=== PATIENT | female | born 1940 | race Caucasian/White ===

== ENCOUNTER 2017-02-20 10:51 | Day surgery (SDC) | payer MEDICARE ==
[2017-02-15 13:31] VITALS: BMI 20.3
[~2017-02-20 10:51] MED LIST: DEXAMETHASONE SOD PHOSPHATE 10 MG/ML 1 ML VIAL IV ONE; HEPARIN SODIUM,PORCINE 5,000 UNIT/ML 1 ML VIAL SQ ONE; HYDROmorphone 1 MG/ML 1 ML SYRINGE IVP PRN; LACTATED RINGERS 1,000 ML IV SCH; MIDAZOLAM 2 MG/2 ML VIAL IV PRN; ONDANSETRON 4 MG/2 ML VIAL IVP ONE; ceFAZolin 2 GM in SODIUM CHLORIDE 0.9% 100 ML IVPB ONE
[2017-02-20 11:22] VITALS: RESP 16; TEMP 98.3
[2017-02-20] MEDS ORDERED: LIDOCAINE 1% 20 ML VIAL (10MG/ML) FOR IV START INTRADERMA ONE (11:23)
[2017-02-20] MEDS ORDERED: LIDOCAINE 1%-EPI 1:100,000 20 ML VIAL SQ ONE ×2 (12:44→13:38)
--- NOTE | 2017-02-20 12:56 | P.GSHP ---
History of Present Illness H&P Date: 02/20/17 Chief Complaint: Liver cancer Cyst 68-year-old female who was recently diagnosed with liver cancer. Patient rents today for Port-A-Cath insertion. - Constitutional Constitutional: Reports as per HPI Past Medical History Past Medical History: Cancer Additional Past Medical History / Comment(s): PANCREATIC/LIVER History of Any Multi-Drug Resistant Organisms: None Reported Past Surgical History: Appendectomy, Cholecystectomy Additional Past Surgical History / Comment(s): BX OF LIVER Past Anesthesia/Blood Transfusion Reactions: No Reported Reaction Smoking Status: Never smoker - Past Family History Brother(s) Family Medical History: Cancer Additional Family Medical History / Comment(s): PANCREATIC Medications and Allergies Home Medications Medication Instructions Recorded Confirmed Type Acetaminophen Tab [Tylenol Tab] 325 mg PO Q4H PRN 02/15/17 02/20/17 History Ibuprofen [Advil] 200 mg PO Q6HR PRN 02/15/17 02/15/17 History HYDROcodone/APAP 5-325MG [[place] 1 tab PO Q6HR PRN 02/20/17 02/20/17 History 5-325] Allergies Allergy/AdvReac Type Severity Reaction Status Date / Time No Known Allergies Allergy Verified 02/15/17 13:23 Surgical - Exam Vital Signs Temp Pulse Resp BP Pulse Ox 98.3 F 76 16 151/70 100 02/20/17 11:21 02/20/17 11:21 02/20/17 11:21 02/20/17 11:21 02/20/17 11:21 - General well developed, no distress - Eyes PERRL - ENT normal pinna - Neck no masses - Respiratory normal expansion - Cardiovascular Rhythm: regular - Abdomen Abdomen: soft, non tender Assessment and Plan Plan: Liver cancer. We'll perform Port-A-Cath insertion
[2017-02-20] MEDS ORDERED: fentaNYL (PF) 50 MCG/ML 2 ML AMP ONE (13:18)
[2017-02-20] MEDS ORDERED: PROPOFOL 10 MG/ML 20 ML VIAL IV ONE (13:18)
[2017-02-20] MEDS ORDERED: MIDAZOLAM 2 MG/2 ML VIAL ONE (13:18)
--- NOTE | 2017-02-20 13:46 | P.OP ---
Date of Procedure: 02/20/17 Preoperative Diagnosis: Liver cancer Postoperative Diagnosis: Liver cancer Procedure(s) Performed: Right subclavian Port-A-Cath insertion Implants: Anesthesia: MAC Surgeon: Elvis Dobbins Estimated Blood Loss (ml): 5 Pathology: none sent Condition: stable Disposition: PACU Indications for Procedure: Operative Findings: Description of Procedure: PROCEDURE: The patient was placed on the operating table in the supine position. She received MAC anesthetic. The right chest was prepped and draped in the usual sterile fashion. The skin underneath the right clavicle was anesthetized with 1% Xylocaine and using Seldinger technique, the right subclavian vein was cannulized. The wire was placed through the needle and positioned under fluoroscopy. Next, the needle was removed and the port site was anesthetized with 1% Xylocaine. Skin was incised with #15 blade and port pocket was made using blunt and sharp dissection. Following this the catheter was attached to the sport and the port was flushed. The port was positioned into the pocket site and was secured with 3-0 Vicryl suture. The catheter was then brought out through the wire site and then the dilator sheath was placed over the wire and the dilator and the wire were removed. The catheter was placed through the sheath and the sheath was removed. The port was flushed with hep-lock solution. Skin was closed with interrupted 3-0 Vicryl sutures. Steri-Strips were applied. The patient tolerated the procedure well. The patient was sent to recovery room for chest x -ray after the procedure.
--- NOTE | 2017-02-20 14:07 | FL ---
Fluoroscopy INDICATION: Pain FINDINGS: Fluoroscopy time: 7 seconds. Images obtained: 1. IMPRESSIONS: 1. Documentation of fluoroscopy.
--- NOTE | 2017-02-20 14:18 | XR ---
EXAMINATION TYPE: XR chest 1V portable DATE OF EXAM: 02/20/2017 COMPARISON: NONE INDICATION: Line placement TECHNIQUE: Single frontal view of the chest is obtained. FINDINGS: The heart size is normal. The pulmonary vasculature is normal. Perihilar increased lung markings are present. Some milder peripheral lung markings on the left. Keren elate for atelectasis. Catheter is present on the right with the tip in the proximal superior vena cava. IMPRESSION: 1. No pneumothorax post right-sided catheter placement. 2. Perihilar increased lung markings greater on the left
[2017-02-20 14:32] VITALS: BP 121/54; PULSE 80
== END 2017-02-20 15:33 | disposition home or self-care (01) ==
LOC: OR 10:51
PROVIDERS: ATTEND Surgery
DX: C78.7 Secondary malignant neoplasm of liver and intrahepatic bile duct (principal); C25.9 Malignant neoplasm of pancreas, unspecified
CPT/HCPCS: 71010; 77001; 36561; C1788; J2250; J1644; J1100; J0690; J2405; J3010; J2704

== ENCOUNTER → 2017-05-21 | Outpatient (CLI) | payer MEDICARE ==
--- NOTE | 2017-05-21 17:43 | US ---
EXAMINATION TYPE: US venous doppler duplex LE RT DATE OF EXAM: 05/21/2017 5:25 PM COMPARISON: NONE CLINICAL HISTORY: M79.661 Pain in right lower leg. SIDE PERFORMED: Right TECHNIQUE: The lower extremity deep venous system is examined utilizing real time linear array sonog michael with graded compression, doppler sonography and color-flow sonography. VESSELS IMAGED: External Iliac Vein (EIV) Common Femoral Vein Deep Femoral Vein Greater Saphenous Vein * Femoral Vein Popliteal Vein Small Saphenous Vein * Proximal Calf Veins (* superficial vessels) Right Leg: Negative for DVT Grayscale, color doppler, spectral doppler imaging performed of the deep veins of the right lower ext remity. There is normal flow, compressibility, vascular waveforms. IMPRESSION: No ultrasound evidence for acute DVT in the right lower extremity.
== END | disposition home or self-care (01) ==
LOC: RADUSMAIN 16:58
PROVIDERS: ATTEND Internal Medicine Hematology & Oncology
DX: M79.661 Pain in right lower leg (principal)

== ENCOUNTER 2017-08-06 11:47 | Observation (INO) | payer MEDICARE ==
[2017-08-06] MEDS ORDERED: HYDROmorphone 1 MG/ML 1 ML SYRINGE IVP PRN (14:35)
[2017-08-06] MEDS ORDERED: LACTULOSE 200 GM/300 ML (FROM 1/2 GAL JUG) PO PRN (14:58)
[2017-08-06] MEDS ORDERED: DOCUSATE 100 MG CAP PO PRN (14:58)
[2017-08-06] MEDS ORDERED: LORazepam 1 MG TAB PO PRN (14:58)
[2017-08-06] MEDS ORDERED: ONDANSETRON 4 MG/2 ML VIAL IVP PRN (14:59)
[2017-08-06 15:17] VITALS: RESP 16
--- NOTE | 2017-08-06 15:56 | P.HPIM ---
History of Present Illness H&P Date: 08/06/17 Chief Complaint: Abdominal pain Ms. a 76-year-old female with a known history of pancreatic cancer with liver metastases diagnosed in October 2016 who underwent IV chemotherapy 2 weeks ago and on oral chemotherapy presented to [facility] the complaints of abdominal pain worsening for the past 3 days. Pain is mainly in the epigastric and left upper quadrant area. No worsening or relieving factors Patient was diagnosed with constipation and was given in [place] and oral medications 3 days ago.. He has been having issues with constipation and thought she was having bowel obstruction which made her to go to the ER. Patient was eventually transferred to [facility] for further management. He had CT chest without contrast which showed infrahilar atelectasis without focal consolidation. Stable bilateral pulmonary nodules. Stable right port a cath. CT of the abdomen and pelvis showed fluid/gas present throughout not distended small bowel loops and fecal-like material feeling/mildly distending distal small bowel loops to the level of the ileocecal valve extends . No clear evidence of obstruction. acute abdominal series showed normal bowel gas pattern. AST 60, ALT 98, and alk phos 345 Total bilirubin 7.8 and direct bilirubin 5.4 Lactic acid is not elevated Remaining laboratory data reviewed from [facility] Review of Systems Constitutional: Patient denies any fever or chills . Positive generalized weakness, loss of appetite and weight loss. Abdomen: Patient denied nausea vomiting no diarrhea. Positive abdominal pain and constipation Cardiovascular: Patient denies any chest pain or short of breath no palpitations. Respiratory: patient denied any cough is from production. No shortness of breath Neurologic: Patient denied any numbness or tingling headache. Musculoskeletal: Patient denies any complaints of joint swelling or deformity. Skin: Negative Psychiatric: Negative Endocrine: No heat or cold intolerance. No recent weight gain. Genitourinary: No dysuria or hematuria. All other 14 point ROS negative except the above Past Medical History Past Medical History: Cancer Additional Past Medical History / Comment(s): PANCREATIC CANCER WITH LIVER METS , OSTEOPOROSIS. History of Any Multi-Drug Resistant Organisms: None Reported Past Surgical History: Appendectomy, Cholecystectomy Additional Past Surgical History / Comment(s): BX OF LIVER, PORT A CATH, COLONOSCOPY Past Anesthesia/Blood Transfusion Reactions: No Reported Reaction Smoking Status: Former smoker - Past Family History Brother(s) Family Medical History: Cancer Additional Family Medical History / Comment(s): PANCREATIC Father Family Medical History: No Reported History Additional Family Medical History / Comment(s): FATHER LIVED TO BE 97YRS OLD. Mother Family Medical History: No Reported History Additional Family Medical History / Comment(s): MOTHER LIVED TO BE 97YRS OLD. Medications and Allergies Home Medications Medication Instructions Recorded Confirmed Type Docusate [Colace] 100 mg PO BID PRN 08/06/17 08/06/17 History LORazepam [Ativan] 1 mg PO Q6H PRN 08/06/17 08/06/17 History Lactulose 20 gm PO BID PRN 08/06/17 08/06/17 History Na Phos,M-B/Na Phos,Di-Ba [Fleet 133 ml RECTAL ONCE PRN 08/06/17 08/06/17 History Adult] Naloxegol Oxalate [Movantik] 12.5 - 25 mg PO DAILY PRN 08/06/17 08/06/17 History Ondansetron [Zofran ODT] 8 mg PO Q8HR PRN 08/06/17 08/06/17 History Sancuso Patch 1 patch TRANSDERM Q14D 08/06/17 08/06/17 History fentaNYL 25MCG/HR PATCH [Duragesic 1 patch TRANSDERM Q72H 08/06/17 08/06/17 History 25MCG/HR] traMADol HCL [Ultram] 50 mg PO Q6HR PRN 08/06/17 08/06/17 History Allergies Allergy/AdvReac Type Severity Reaction Status Date / Time No Known Allergies Allergy Verified 08/06/17 14:33 Physical Exam Vitals: Intake and Output 08/05/17 08/06/17 08/06/17 22:59 06:59 14:59 Other: Weight 45.5 kg Patient Weight 08/07/17 06:59 Weight 45.5 kg PHYSICAL EXAMINATION: Patient is lying in the bed comfortably, no acute distress, awake alert and oriented.. HEENT: Normocephalic. Neck is supple. Pupils reactive. Nostrils clear. Oral cavity is moist. Ears reveal no drainage. Neck reveals no JVD, carotid bruits, or thyromegaly. CHEST EXAMINATION: Trachea is central. Symmetrical expansion. Lung ca clear to auscultation and percussion. CARDIAC: Normal S1, S2 with no gallops. No murmurs ABDOMEN: Soft. mild epigastric tenderness with sluggish bowel sounds. No organomegaly. No abdominal bruits. Extremities: reveal no edema. No clubbing or cyanosis Neurologically awake, alert, oriented x3 with well-coordinated movements. No focal deficits noted Skin: No rash or skin lesions. Psychiatric: Coperative. Nonsuicidal Musculoskeletal: No joint swelling or deformity. Normal range of motion. Thrombosis Risk Factor Assmnt - DVT/VTE Prophylaxis DVT/VTE Prophylaxis: Pharmacologic Prophylaxis ordered - Choose All That Apply Any of the Below Risk Factors Present?: Yes Other Risk Factors: Yes Each Risk Factor Represents 2 Points: Malignancy Each Risk Factor Represents 3 Points: Age 75 years or older Other congenital or acquired thrombophilia - If yes, enter type in comment: No Thrombosis Risk Factor Assessment Total Risk Factor Score: 5 Thrombosis Risk Factor Assessment Level: High Risk Assessment and Plan Assessment: #1 abdominal pain secondary to constipation. No obstruction noted on CT #2 pancreatic cancer status post chemotherapy 2 weeks ago metastatic to liver. #3 elevated liver in and alk phos #4 hyperbilirubinemia #5 constipation DVT prophylaxis next line plan: She will be continued on pain management and stool softeners and laxatives. Continue with IV hydration and clear liquid diet . Oncology will be consulted. Further recommendations based on the clinical course. Continue with home medications and follow closely.
[2017-08-06] MEDS: HEPARIN SODIUM,PORCINE 5,000 UNIT/ML 1 ML VIAL SQ SCH ×2 (16:26→23:24)
[2017-08-06] MEDS: SODIUM CHLORIDE 0.9% 1,000 ML IV SCH (16:27)
[2017-08-06] MEDS: HYDROmorphone 1 MG/ML 1 ML SYRINGE IVP PRN ×2 (17:39→23:17)
--- NOTE | 2017-08-06 20:59 | P.CONS ---
History of Present Illness - Reason for Consult Consult date: 08/06/17 Metastatic pancreatic cancer. Abdominal pain - History of Present Illness The patient is 76-year-old lady, well known to our service. She is followed by , in the outpatient setting. She was diagnosed with pancreatic cancer metastatic to the liver, around 02/02. She has since been on chemotherapy. (The exact details of her regimens are not available to me at this time). She states that her regimen was recently changed, but she was unable to tolerated because of nausea and progressive weakness. Therefore treatment was stopped, and she has been off it now for about 2-3 weeks. A repeat MRI for reevaluation was being planned. The patient went into the emergency room at [facility], because of increasing abdominal pain. His had been progressively over 2-3 days. She had some nausea but no reported vomiting. She received stool softener and enema with some response. However the symptoms recurred causing her to go back to the ER from where she was transferred here. CT chest abdomen and pelvis were done earlier today at [facility] and reports are reviewed. Lung showed stable bilateral pulmonary nodules and some infrahilar atelectasis. In the abdomen there was increased small bowel fluid and gas without clear evidence of obstruction. Fecal material was seen throughout distal small bowel loops which are mildly dilated to the level of the ileocecal valve. There was also diffusely increased colonic gas and stool present with constipation. Acute abdominal series from 08/03/17 from her previous ER visits had shown a nonspecific bowel gas pattern. She had also had a CTA of the chest done which showed no evidence of pulmonary embolus. Consult was placed a further evaluation and recommendations Review of Systems Constitutional: Reports chronic pain, Reports fatigue, Reports poor appetite, Reports weakness, Reports weight loss Eyes: denies blurred vision, denies pain Ears: deny: decreased hearing, ear discharge, earache, tinnitus Ears, nose, mouth and throat: Denies headache, Denies sore throat Cardiovascular: Reports dyspnea on exertion Respiratory: Reports dyspnea (On exertion), Reports pain on inspiration Gastrointestinal: Reports abdominal pain, Reports constipation Genitourinary: Denies dysuria, Denies hematuria Menstruation: Reports postmenopausal Musculoskeletal: Reports muscle weakness Integumentary: Denies pruritus, Denies rash Neurological: Reports weakness, Denies numbness Psychiatric: Denies anxiety, Denies depression Endocrine: Reports fatigue, Reports weight change Hematologic/Lymphatic: Reports as per HPI Past Medical History Past Medical History: Cancer Additional Past Medical History / Comment(s): PANCREATIC CANCER WITH LIVER METS , OSTEOPOROSIS. History of Any Multi-Drug Resistant Organisms: None Reported Past Surgical History: Appendectomy, Cholecystectomy Additional Past Surgical History / Comment(s): BX OF LIVER, PORT A CATH, COLONOSCOPY Past Anesthesia/Blood Transfusion Reactions: No Reported Reaction Smoking Status: Former smoker - Past Family History Brother(s) Family Medical History: Cancer Additional Family Medical History / Comment(s): PANCREATIC Father Family Medical History: No Reported History Additional Family Medical History / Comment(s): FATHER LIVED TO BE 97YRS OLD. Mother Family Medical History: No Reported History Additional Family Medical History / Comment(s): MOTHER LIVED TO BE 97YRS OLD. Medications and Allergies Home Medications Medication Instructions Recorded Confirmed Type Docusate [Colace] 100 mg PO BID PRN 08/06/17 08/06/17 History LORazepam [Ativan] 1 mg PO Q6H PRN 08/06/17 08/06/17 History Lactulose 20 gm PO BID PRN 08/06/17 08/06/17 History Na Phos,M-B/Na Phos,Di-Ba [Fleet 133 ml RECTAL ONCE PRN 08/06/17 08/06/17 History Adult] Naloxegol Oxalate [Movantik] 12.5 - 25 mg PO DAILY PRN 08/06/17 08/06/17 History Ondansetron [Zofran ODT] 8 mg PO Q8HR PRN 08/06/17 08/06/17 History Sancuso Patch 1 patch TRANSDERM Q14D 08/06/17 08/06/17 History fentaNYL 25MCG/HR PATCH [Duragesic 1 patch TRANSDERM Q72H 08/06/17 08/06/17 History 25MCG/HR] traMADol HCL [Ultram] 50 mg PO Q6HR PRN 08/06/17 08/06/17 History Allergies Allergy/AdvReac Type Severity Reaction Status Date / Time No Known Allergies Allergy Verified 08/06/17 14:33 Physical Exam Vitals: Vital Signs Temp Pulse Resp BP Pulse Ox 08/06/17 19:31 83 16 08/06/17 15:00 99.1 F 83 16 159/68 98 Intake and Output 08/06/17 08/06/17 08/06/17 06:59 14:59 22:59 Other: Voiding Method Toilet Weight 45.5 kg Patient Weight 08/07/17 06:59 Weight 45.5 kg - Constitutional General appearance: no acute distress - EENT Eyes: EOMI, PERRLA ENT: hearing grossly normal, normal oropharynx - Neck Neck: no lymphadenopathy - Respiratory Respiratory: bilateral: CTA - Cardiovascular Rhythm: regular Heart sounds: normal: S1, S2 - Gastrointestinal General gastrointestinal: distended, normal bowel sounds - Integumentary Integumentary: normal - Neurologic Neurologic: CNII-XII intact - Musculoskeletal Musculoskeletal: generalized weakness, strength equal bilaterally - Psychiatric Psychiatric: A&O x's 3, appropriate affect Results Results: Absence from [facility] reviewed. Hemoglobin 13.2, W BC 7.7, platelets 187. Coags were within normal limits. Troponin was also normal. Electrolytes, and calcium were within normal limits. Alkaline phosphatase was high at 345 with SGOT 60 and SGPT 98. Lactic acid normal at 0.6. Getting enzymes WNL Abdominal x-ray: report reviewed CT scan - abdomen: report reviewed CT scan - chest: report reviewed CT scan - pelvis: report reviewed Assessment and Plan (1) Constipation due to opioid therapy Narrative/Plan: The patient does have a history of chronic pain, and is on fentanyl. Most likely constipation is opioid induced. The patient had a partial response to an enema, with recurrence of symptoms since. I will change her docusate to Senokot, on scheduled dosing. The patient is on lactulose when necessary. It was discussed with nursing to actually give her a dose every 6 hours, till her bowels move, and then switch back to when necessary. If needed enema can be repeated. Current Visit: Yes Status: Acute Code(s): K59.03 - DRUG INDUCED CONSTIPATION ; T40.2X5A - ADVERSE EFFECT OF OTHER OPIOIDS, INITIAL ENCOUNTER SNOMED Code(s) : [id number] (2) Pancreatic cancer metastasized to liver Narrative/Plan: Diagnostic and therapeutic circumstances as described. The exact details of her most recent chemotherapy regimen are not available to me at this time. Her office chart will be reviewed and the note dictated. The patient is currently on a treatment break, and states that she has had slow improvement in her treatment related symptoms of weakness, decreased appetite and nausea. She will resume follow-up with Dr. Saeed as an outpatient Current Visit: Yes Status: Acute Code(s): C25.9 - MALIGNANT NEOPLASM OF PANCREAS, UNSPECIFIED; C78.7 - SECONDARY MALIG NEOPLASM OF LIVER AND INTRAHEPATIC BILE DUCT SNOMED Code(s): 623040641
[2017-08-06] MEDS: SENNOSIDES 8.6 MG TAB PO SCH (22:58)
[2017-08-06] MEDS: LACTULOSE 20 GM/30 ML CUP PO SCH (23:18)
[2017-08-07] MEDS: SODIUM CHLORIDE 0.9% 1,000 ML IV SCH ×3 (03:34→20:48)
[2017-08-07] MEDS: LACTULOSE 20 GM/30 ML CUP PO SCH ×3 (05:18→16:56)
[2017-08-07 07:29] LABS: Anisocytosis Slight; Basophils % (A) 1 %; Eosinophils % (A) 0 %; HCT 39.6 % (34.0-46.0); HGB 12.2 gm/dL (11.4-16.0); Lymphocytes # (A) 0.8 k/uL (1.0-4.8); Lymphocytes % (A) 13 %; MCH 30.3 pg (25.0-35.0); MCHC 30.9 g/dL (31.0-37.0); Macrocytosis Slight; Mean Platelet Volume 7.2; Monocytes # (A) 0.5 k/uL (0-1.0); Monocytes % (A) 9 %; Neutrophils # (A) 4.6 k/uL (1.3-7.7); Neutrophils % (A) 77 %; Platelet Count 159 k/uL (150-450); RBC 4.04 m/uL (3.80-5.40); RDW 16.5 % (11.5-15.5)
[2017-08-07] MEDS: HYDROmorphone 1 MG/ML 1 ML SYRINGE IVP PRN ×5 (07:29→20:47)
[2017-08-07] MEDS: HEPARIN SODIUM,PORCINE 5,000 UNIT/ML 1 ML VIAL SQ SCH ×2 (07:30→14:58)
[2017-08-07] MEDS: SENNOSIDES 8.6 MG TAB PO SCH ×3 (07:30→20:35)
[2017-08-07 07:46] LABS: Anion Gap 6 mmol/L; Blood Urea Nitrogen 8 mg/dL (7-17); Calcium 8.6 mg/dL (8.4-10.2); Carbon Dioxide 25 mmol/L (22-30); Chloride 104 mmol/L (98-107); Glucose 110 mg/dL (74-99); Potassium 3.7 mmol/L (3.5-5.1); Sodium 135 mmol/L (137-145)
[2017-08-07 11:52] VITALS: BMI 17.7
[2017-08-08] MEDS: HYDROmorphone 1 MG/ML 1 ML SYRINGE IVP PRN ×5 (00:14→20:17)
[2017-08-08] MEDS: HEPARIN SODIUM,PORCINE 5,000 UNIT/ML 1 ML VIAL SQ SCH ×3 (00:14→16:09)
[2017-08-08] MEDS: LACTULOSE 20 GM/30 ML CUP PO SCH ×4 (00:14→17:55)
[2017-08-08] MEDS: SENNOSIDES 8.6 MG TAB PO SCH ×2 (08:25→20:18)
[2017-08-08] MEDS: SODIUM CHLORIDE 0.9% 1,000 ML IV SCH ×2 (11:25→16:18)
--- NOTE | 2017-08-08 15:42 | XR ---
EXAMINATION TYPE: XR chest 1V portable DATE OF EXAM: 08/08/2017 HISTORY: Shortness of breath. COMPARISON: 02/20/2017 TECHNIQUE: Single view of the chest is submitted. FINDINGS: Demonstrated are scattered senescent parenchymal change. There is no evidence for focal infiltrate. The heart is stable. Hilar and mediastinal structures are within normal limits. Degenerative changes are seen of the dorsal spine. IMPRESSION: 1. Chronic changes without evidence for acute pulmonary disease.
--- NOTE | 2017-08-08 23:01 | P.PN ---
Subjective Progress Note Date: 08/07/17 Principal diagnosis: Abdominal pain due to constipation a 76-year-old female with a known history of pancreatic cancer with liver metastases diagnosed in October 2016 who underwent IV chemotherapy 2 weeks ago and on oral chemotherapy presented to [facility] the complaints of abdominal pain worsening for the past 3 days. Pain is mainly in the epigastric and left upper quadrant area. No worsening or relieving factors Patient was diagnosed with constipation and was given in [place] and oral medications 3 days ago.. He has been having issues with constipation and thought she was having bowel obstruction which made her to go to the ER. Patient was eventually transferred to [facility] for further management. He had CT chest without contrast which showed infrahilar atelectasis without focal consolidation. Stable bilateral pulmonary nodules. Stable right port a cath. CT of the abdomen and pelvis showed fluid/gas present throughout not distended small bowel loops and fecal-like material feeling/mildly distending distal small bowel loops to the level of the ileocecal valve extends . No clear evidence of obstruction. acute abdominal series showed normal bowel gas pattern. AST 60, ALT 98, and alk phos 345 Total bilirubin 7.8 and direct bilirubin 5.4 Lactic acid is not elevated Remaining laboratory data reviewed from [facility] 08/07/2017 Patient is still having abdominal pain. Patient had not had bowel movement so far. Still having nausea and also vomiting. No fever no chills. No complaints of chest pain or shortness of breath. Patient was seen by oncology. All other review of systems negative except the above Current medications reviewed Objective - Vital Signs Vital signs: Vital Signs Temp 99.3 F 08/07/17 22:30 Pulse 93 08/07/17 22:30 Resp 16 08/07/17 22:30 BP 158/115 08/07/17 22:30 Pulse Ox 98 08/07/17 22:30 Intake & Output 08/07/17 08/07/17 08/08/17 06:59 18:59 06:59 Intake Total 1100 800 800 Balance 1100 800 800 Weight 45.5 kg 45.5 kg Intake: Intake, IV Titration 1100 800 800 Amount Sodium Chloride 0.9% 1, 1100 800 800 000 ml @ 100 mls/hr IV . Q10H ROMEO Rx#:[id number] Other: Voiding Method Toilet # Voids 3 2 - Exam PHYSICAL EXAMINATION: Patient is lying in the bed comfortably, mild distress due to pain , awake alert and oriented.. HEENT: Normocephalic. Neck is supple. Pupils reactive. Nostrils clear. Oral cavity is moist. Ears reveal no drainage. Neck reveals no JVD, carotid bruits, or thyromegaly. CHEST EXAMINATION: Trachea is central. Symmetrical expansion. Lung ca clear to auscultation and percussion. CARDIAC: Normal S1, S2 with no gallops. No murmurs ABDOMEN: Soft. Left lower quadrant abdominal pain Bowel sounds normal. No organomegaly. No abdominal bruits. Extremities: reveal no edema. No clubbing or cyanosis Neurologically awake, alert, oriented x3 with well-coordinated movements. No focal deficits noted Skin: No rash or skin lesions. Psychiatric: Operative. Nonsuicidal Musculoskeletal: No joint swelling or deformity. Normal range of motion. - Labs CBC & Chem 7: 08/07/17 07:07 08/07/17 07:07 Labs: Abnormal Lab Results - Last 24 Hours (Table) 08/07/17 08/07/17 Range/Units 07:07 07:07 MCHC 30.9 L (31.0-37.0) g/dL RDW 16.5 H (11.5-15.5) % Lymphocytes # 0.8 L (1.0-4.8) k/uL Sodium 135 L (137-145) mmol/L Creatinine 0.50 L (0.52-1.04) mg/dL Glucose 110 H (74-99) mg/dL Assessment and Plan Assessment: #1 abdominal pain secondary to constipation. No obstruction noted on CT #2 pancreatic cancer status post chemotherapy 2 weeks ago metastatic to liver. #3 elevated liver in and alk phos #4 hyperbilirubinemia #5 constipation DVT prophylaxis next line plan: She will be continued on pain management and stool softeners and laxatives. Continue with IV hydration and clear liquid diet . Oncology evaluated the patient. Further recommendations based on the clinical course. Continue with home medications and follow closely.
--- NOTE | 2017-08-08 23:03 | P.PN ---
Subjective Progress Note Date: 08/08/17 Principal diagnosis: Abdominal pain due to constipation a 76-year-old female with a known history of pancreatic cancer with liver metastases diagnosed in October 2016 who underwent IV chemotherapy 2 weeks ago and on oral chemotherapy presented to [facility] the complaints of abdominal pain worsening for the past 3 days. Pain is mainly in the epigastric and left upper quadrant area. No worsening or relieving factors Patient was diagnosed with constipation and was given in [place] and oral medications 3 days ago.. He has been having issues with constipation and thought she was having bowel obstruction which made her to go to the ER. Patient was eventually transferred to [facility] for further management. He had CT chest without contrast which showed infrahilar atelectasis without focal consolidation. Stable bilateral pulmonary nodules. Stable right port a cath. CT of the abdomen and pelvis showed fluid/gas present throughout not distended small bowel loops and fecal-like material feeling/mildly distending distal small bowel loops to the level of the ileocecal valve extends . No clear evidence of obstruction. acute abdominal series showed normal bowel gas pattern. AST 60, ALT 98, and alk phos 345 Total bilirubin 7.8 and direct bilirubin 5.4 Lactic acid is not elevated Remaining laboratory data reviewed from [facility] 08/07/2017 Patient is still having abdominal pain. Patient had not had bowel movement so far. Still having nausea and also vomiting. No fever no chills. No complaints of chest pain or shortness of breath. Patient was seen by oncology. 08/08/2017 Patient had a large bowel movement this morning. Otherwise patient still having abdominal pain. Continued on pain management. No fever no chills. No chest pain no shortness of breath and anticipate discharge in next 24 hours. All other review of systems negative except the above Current medications reviewed Objective - Vital Signs Vital signs: Vital Signs Temp 98.3 F 08/08/17 22:37 Pulse 80 08/08/17 22:37 Resp 16 08/08/17 22:37 BP 142/67 08/08/17 22:37 Pulse Ox 98 08/08/17 22:37 Intake & Output 08/08/17 08/08/17 08/09/17 06:59 18:59 06:59 Intake Total 800 Balance 800 Weight 45.5 kg Intake: Intake, IV Titration 800 Amount Sodium Chloride 0.9% 1, 800 000 ml @ 100 mls/hr IV . Q10H ROMEO Rx#:[id number] Other: Voiding Method Bedside Commode Bedside Commode # Voids 2 4 1 # Bowel Movements 1 - Exam PHYSICAL EXAMINATION: Patient is lying in the bed comfortably, mild distress due to pain , awake alert and oriented.. HEENT: Normocephalic. Neck is supple. Pupils reactive. Nostrils clear. Oral cavity is moist. Ears reveal no drainage. Neck reveals no JVD, carotid bruits, or thyromegaly. CHEST EXAMINATION: Trachea is central. Symmetrical expansion. Lung ca clear to auscultation and percussion. CARDIAC: Normal S1, S2 with no gallops. No murmurs ABDOMEN: Soft. Left lower quadrant abdominal pain Bowel sounds normal. No organomegaly. No abdominal bruits. Extremities: reveal no edema. No clubbing or cyanosis Neurologically awake, alert, oriented x3 with well-coordinated movements. No focal deficits noted Skin: No rash or skin lesions. Psychiatric: Operative. Nonsuicidal Musculoskeletal: No joint swelling or deformity. Normal range of motion. - Labs CBC & Chem 7: 08/07/17 07:07 08/07/17 07:07 Assessment and Plan Assessment: #1 abdominal pain secondary to constipation. Patient had bowel movement today. No obstruction noted on CT #2 pancreatic cancer status post chemotherapy 2 weeks ago metastatic to liver. #3 elevated liver in and alk phos #4 hyperbilirubinemia #5 constipation DVT prophylaxis next line plan: She will be continued on pain management and stool softeners and laxatives. Continue with IV hydration and clear liquid diet . Oncology evaluated the patient. Further recommendations based on the clinical course. Continue with home medications and follow closely.
[2017-08-09] MEDS: HYDROmorphone 1 MG/ML 1 ML SYRINGE IVP PRN ×2 (00:21→05:23)
[2017-08-09] MEDS: LACTULOSE 20 GM/30 ML CUP PO SCH ×2 (00:21→05:23)
[2017-08-09] MEDS: HEPARIN SODIUM,PORCINE 5,000 UNIT/ML 1 ML VIAL SQ SCH ×2 (00:21→08:35)
[2017-08-09] MEDS: SODIUM CHLORIDE 0.9% 1,000 ML IV SCH (05:24)
[2017-08-09 07:48] LABS: Basophils % (A) 0 %; Eosinophils % (A) 0 %; HCT 37.7 % (34.0-46.0); HGB 12.1 gm/dL (11.4-16.0); Lymphocytes # (A) 0.9 k/uL (1.0-4.8); Lymphocytes % (A) 18 %; MCH 31.1 pg (25.0-35.0); MCHC 32.2 g/dL (31.0-37.0); MCV 96.6 fL (80.0-100.0); Mean Platelet Volume 7.6; Monocytes # (A) 0.4 k/uL (0-1.0); Monocytes % (A) 8 %; Neutrophils # (A) 3.7 k/uL (1.3-7.7); Neutrophils % (A) 73 %; Platelet Count 177 k/uL (150-450); WBC 5.1 k/uL (3.8-10.6)
[2017-08-09 08:16] LABS: Anion Gap 5 mmol/L; Blood Urea Nitrogen 3 mg/dL (7-17); Calcium 8.3 mg/dL (8.4-10.2); Carbon Dioxide 30 mmol/L (22-30); Chloride 102 mmol/L (98-107); Glucose 105 mg/dL (74-99); Potassium 3.2 mmol/L (3.5-5.1); Sodium 137 mmol/L (137-145)
[2017-08-09 08:19] VITALS: BP 169/79; PULSE 83; TEMP 98.9
[2017-08-09] MEDS: SENNOSIDES 8.6 MG TAB PO SCH (08:34)
[2017-08-09] MEDS ORDERED: traMADol 50 MG TAB PO PRN (11:56)
[2017-08-09] MEDS ORDERED: traMADol 50 MG TAB ONE ×2 (12:14→12:16)
--- NOTE | 2017-08-09 22:54 | DS ---
DISCHARGE SUMMARY DIAGNOSIS ADMISSION: 08/06/2017 DATE OF DISCHARGE: 08/09/2017 DISCHARGE DIAGNOSES: 1. Abdominal pain secondary to constipation, improved now. 2. Pancreatic cancer metastatic to liver. 3. Abdominal pain. 4. Chronic pain with pain medications. HOSPITAL COURSE: Ms. Mathis is a 76-year-old female with a known history of pancreatic cancer diagnosed in October 2016. She completed chemotherapy about 2 weeks back and was admitted to the hospital for abdominal pain and constipation. The patient was treated with symptomatic management with IV fluids, pain medications, stool softeners and laxatives. The patient did have a good bowel movement yesterday and the patient is again having a small bowel movement today. Otherwise, patient's abdominal pain is still present and is being treated with a fentanyl patch as well as tramadol and will be added at 50 mg b.i.d. Otherwise, patient is stable to be discharged back to [facility]. The patient was also continued on hydromorphone 1 mg IV q.6 hourly p.r.n. for pain while in the hospital. CONSULTATION: Oncology consultation. DISCHARGE PHYSICAL EXAMINATION: Vitals stable. HEENT: Atraumatic, normocephalic. NECK: Supple. No JVD. CVS exam: S1, S2 heard. No murmurs. No gallop. LUNGS: Bilateral air entry is present. No wheezing. No crackles. ABDOMEN: Soft and tender to palpation, especially in the upper abdominal area in the left upper quadrant. No guarding. No rigidity. PSYCHIATRIC: Cooperative. NEUROLOGIC: Alert and orient x3. No focal deficit. EXTREMITIES: No edema. Pulses are palpable. There is no clubbing or cyanosis. DISCHARGE MEDICATIONS: Discharge medications include: 1. Lorazepam 1 mg q.6 hourly p.o. p.r.n. for anxiety. 2. Zofran 4 mg IV q.6 hourly p.r.n. for nausea and vomiting. 3. Fentanyl patch 25 mcg q.72 hours. 4. Lactulose 20 mg p.o. b.i.d. 5. Colace 100 mg p.o. b.i.d. p.r.n. for constipation. 6. Senokot 2 tablets at bedtime p.r.n. for constipation. 7. Motrin extended-release 15 mg p.o. b.i.d. The patient will be discharged back to [facility] in stable condition. Time taken more than 35 minutes, including 18 minutes counseling the patient and coordinating care. HUMERA / RENE: [id number] /
== END 2017-08-09 18:30 | disposition home or self-care (01) ==
LOC: INTOOBSV 13:46 → 5ONC 13:46
PROVIDERS: ADMIT Internal Medicine; ATTEND Internal Medicine
DX: K59.03 Drug induced constipation (principal); T40.2X5A Adverse effect of other opioids, initial encounter; C25.9 Malignant neoplasm of pancreas, unspecified; C78.7 Secondary malignant neoplasm of liver and intrahepatic bile duct; G89.29 Other chronic pain; R91.8 Other nonspecific abnormal finding of lung field; R53.1 Weakness; M81.0 Age-related osteoporosis without current pathological fracture; Z95.828 Presence of other vascular implants and grafts; Z87.891 Personal history of nicotine dependence; Z79.891 Long term (current) use of opiate analgesic; Z79.899 Other long term (current) drug therapy
CPT/HCPCS: 96376 ×4; 96361 ×2; 96374; 96375; 97116; 97161; 97535; 97165; 80048 ×2; 85025 ×2; 71010; G0378 ×4; G0379; J1644 ×4; J2405; J1170 ×4